=== PATIENT | male | born 1955 | race Caucasian/White ===

== ENCOUNTER 2018-08-05 07:42 | Day surgery (SDC) | payer OTHER ==
[~2018-08-05 07:42] MED LIST: BRIMONIDINE 0.2% OPHTH DROPS 5 ML ONE; BSS/LIDOCAINE/EPINEPHRINE 1 ML SYRINGE ONE; EPINEPHrine 1 MG/ML AMP ONE; TIMOLOL 0.5% OPHTH DROPS ONE; TRIAMCIN/MOXIFLOX OPHTHALMIC 0.6 ML VIAL IO ONE; VANCOMYCIN OPHTHALMI 8MG/0.8ML 8 MG/0.8 ML SYRINGE IO ONE
[2018-08-05] MEDS ORDERED: KETOROLAC 0.45% OPHTH DROPS RIGHTEYE ONE (08:00)
[2018-08-05] MEDS ORDERED: PHENYLEPHRINE 2.5% OPHTH 2 ML DROPS RIGHTEYE ONE (08:00)
[2018-08-05] MEDS ORDERED: PROPARACAINE 0.5% OPHTH DROPS 15 ML RIGHTEYE ONE ×2 (08:00→09:22)
[2018-08-05] MEDS ORDERED: CYCLOPENTOLATE 1% OPHTH DROPS 2 ML RIGHTEYE ONE (08:00)
[2018-08-05] MEDS ORDERED: LACTATED RINGERS 500 ML IV ONE (08:12)
--- NOTE | 2018-08-05 08:32 | ANESTHESIA ---
Pre-Anesthesia VS, & Labs - Diagnosis right nuclear sclerotic cataract - Procedure right laser assisted extraction cataract with lens implant Vital Signs: Temp Pulse Resp BP Pulse Ox 36.3 C L 60 16 115/70 98 08/05/18 07:50 08/05/18 07:50 08/05/18 07:50 08/05/18 07:50 08/05/18 07:50 Height 6 ft 1 in Weight (kg) 87.5 kg - NPO >8 hours Home Medications and Allergies Home Medications: Ambulatory Orders Lisinopril [Prinivil] 10 mg PO DAILY 08/05/18 Lisinopril [Prinivil] 10 mg PO DAILY 08/05/18 Allergies/Adverse Reactions: Allergies Allergy/AdvReac Type Severity Reaction Status Date / Time No Known Drug Allergies Allergy Verified 08/05/18 07:57 Anes History & Medical History - Anesthetic History Anesthesia Complications: reports: No previous complications Family history of Anesthesia Complications: Denies Family history of Malignant Hyperthermia: Denies - Medical History Cardiovascular: reports: Hypertension, Arrhythmia Pulmonary: reports: None Gastrointestinal: reports: None Urinary: reports: Kidney stones Musculoskeletal: reports: None Endocrine/Autoimmune: reports: None Skin: reports: None - Surgical History General: Colonoscopy Eyes Ears Nose Throat (EENT): Cataracts Exam General: Alert, Oriented x3, Cooperative, No acute distress Dental: Other (caps) Mouth Openin Fingerbreadth Neck Mobility: Normal Mallampati classification: II Thyromental Distance: greater than 6 cm Respiratory: Lungs clear, Normal breath sounds, No respiratory distress, No accessory muscle use Cardiovascular: Regular rate, Normal S1, Normal S2, No murmurs Plan Anesthesia Type: MAC Consent for Procedure(s) Verified and Reviewed: Yes Code Status: Attempt Resuscitation ASA classification: 2-Mild systemic disease Is this case an emergency?: No
[2018-08-05] MEDS ORDERED: EPINEPHrine 1 MG/ML AMP IVP ONE (09:21)
[2018-08-05] MEDS ORDERED: CHONDR SULF/HYALURONATE SYRINGE IO ONE (09:21)
[2018-08-05] MEDS ORDERED: BRIMONIDINE 0.2% OPHTH DROPS 5 ML OPTH ONE (09:21)
[2018-08-05] MEDS ORDERED: BSS/LIDOCAINE/EPINEPHRINE 1 ML SYRINGE IO ONE (09:22)
[2018-08-05] MEDS ORDERED: TIMOLOL 0.5% OPHTH DROPS OPTH ONE (09:22)
[2018-08-05] MEDS ORDERED: VANCOMYCIN OPHTHALMI 8MG/0.8ML 8 MG/0.8 ML SYRINGE IO ONE (09:22)
[2018-08-05] MEDS ORDERED: TRIAMCIN/MOXIFLOX OPHTHALMIC 0.6 ML VIAL IO ONE (09:22)
[2018-08-05] MEDS ORDERED: MIDAZOLAM 2 MG/2 ML VIAL IVP ONE (09:30)
[2018-08-05] MEDS ORDERED: fentaNYL 100 MCG/2 ML VIAL IVP ONE (09:30)
[2018-08-05 10:04] VITALS: BP 104/67
--- NOTE | 2018-08-05 10:10 | OPERATIVE REPORT ---
DATE OF SERVICE: 08/05/2018 Physician: Horacio Cheng MD PREOPERATIVE DIAGNOSIS: Visually significant cataract, right eye. Cataract surgery was performed on the left eye in 2013. POSTOPERATIVE DIAGNOSIS: Visually significant cataract, right eye. Cataract surgery was performed on the left eye in 2013. PROCEDURE: Phacoemulsification with posterior chamber intraocular lens implant, right eye with laser assist. SURGEON: Horacio Cheng MD ANESTHESIA: Monitored anesthesia care. COMPLICATIONS: None. OPERATIVE INDICATIONS: This is a 63-year-old man with progressive vision loss in the right eye due to 2+ nuclear sclerotic cataract. Best corrected visual acuity was 20/20 with glare to 20/50 in the right eye. Indications for surgery were overall decrease in vision, difficulty seeing words on the computer screen, difficulty driving in low light or at night, difficulty driving at night because of headlights from other vehicles, difficulty with glare or bright lights in any situation, and decreased acuity with firearms. He was consented at length concerning the risks and benefits of cataract surgery, after which he expressed a desire to proceed with surgery. OPERATIVE PROCEDURE: The patient was taken to OR #3 and placed under monitored anesthesia care. A surgical timeout was conducted confirming the correct patient, correct procedure, and correct surgical site. He was placed on the LenSx laser and his eye docked to laser interface. The laser were performed the capsulotomy, lens softening, phaco wounds and arcuate keratotomy incisions. He was then moved to the operating microscope, given topical anesthesia, and then prepped and draped in the usual sterile fashion. The eye was entered at the 12 and 9 o'clock positions. Intracameral Shugarcaine was injected into the anterior chamber, followed by Viscoat. A capsulorrhexis flap created by the LenSx laser was removed from the anterior chamber. The nucleus was hydrodissected and phacoemulsified. Cortex was evacuated using automated infusion and aspiration. Provisc was injected into the capsular bag and a 20.0 diopter intraocular lens inserted in the bag. Approximately 0.8 mL of a mixture of triamcinolone, moxifloxacin and vancomycin was injected subconjunctivally in the superior quadrant for infection and inflammation prophylaxis. I and A was used to evacuate the viscoelastic material. The eye was inflated to physiologic pressure using balanced salt solution and found to be watertight. The patient was taken from the operating room in good condition and given postoperative instructions. TD: 08/05/2018 09:48 MAURO
== END 2018-08-05 07:43 | disposition home or self-care (01) ==
LOC: SDS 07:42
PROVIDERS: ATTEND Ophthalmology
PROC: 08RJ3JZ Replacement of Right Lens with Synthetic Substitute, Percutaneous Approach (ICD-10-PCS; principal; 2018-08-05 09:00)
DX: H25.11 Age-related nuclear cataract, right eye (principal); H53.15 Visual distortions of shape and size; I10 Essential (primary) hypertension
CPT/HCPCS: 66984; A9270; V2632